=== PATIENT | male | born 1940 | race Two or more races ===

== ENCOUNTER 2016-09-29 04:29 | Emergency (ER) | payer OTHER ==
[~2016-09-29 04:29] MED LIST: CARTIA XT240 M1 PO; CARVEDILOL12.5 MG PO; FLOMAX0.4 M1 PO; LIPITOR20 MG PO; LISINOPRIL-HCTZ1 T14 PO; MINOXIDIL2.5 MG PO; PANTOPRAZOLE SO20 MG PO; VOLTAREN75 MG PO
[2016-09-29 06:07] LABS: CALCIUM SERUM 8.4 mg/dL (8.4-10.2); CREATININE SERUM 1.4 mg/dL (0.6-1.4); GLOM FILT RATE Estimated 48.5 mL/min (>60); POTASSIUM 3.6 mmol/L (3.5-5.1)
== END 2016-09-29 06:45 | disposition home or self-care (01) ==
LOC: CED 04:29
PROVIDERS: Emergency Medicine
DX: R60.0 Localized edema (principal); I10 Essential (primary) hypertension
CPT/HCPCS: 80048; 83880; 99283